=== PATIENT | female | born 1975 | race Caucasian/White ===

== ENCOUNTER 2018-07-13 08:53 | Day surgery (SDC) | payer OTHER ==
[2018-07-13] MEDS: LACTATED RINGER'S 1,000 ML IV* (09:45)
[2018-07-13 11:04] LABS: ADD MAN DIFF? NO
[2018-07-13 11:10] LABS: BASOPHILS % 0.4 % (0.0-2.0); EOSINOPHILS # 0.2 10^3/ul (0.0-0.5); EOSINOPHILS % 2.2 % (0.0-7.0); HEMATOCRIT 33.1 % (37.0-47.0); HEMOGLOBIN 10.2 g/dl (12.0-16.0); LYMPHOCYTES # 1.7 10^3/ul (0.8-2.9); LYMPHOCYTES % 25.1 % (15.0-51.0); MEAN CORPUSCULAR HEMOGLOBIN 28.3 pg (29.0-33.0); MEAN CORPUSCULAR HGB CONC 30.8 g/dl (32.0-37.0); MEAN CORPUSCULAR VOLUME 91.9 fl (82.0-101.0); MEAN PLATELET VOLUME 9.7 fl (7.4-10.4); MONOCYTE # 0.6 10^3/ul (0.3-0.9); MONOCYTES % 9.3 % (0.0-11.0); NEUTROPHIL # 4.2 10^3/ul (1.6-7.5); NEUTROPHILS % 62.7 % (39.0-77.0); PLATELET COUNT 318 10^3/UL (140-415); RED CELL DISTRIBUTION WIDTH 13.5 % (11.5-14.5)
[2018-07-13 11:10] LABS: WHITE BLOOD COUNT 6.7 10^3/ul (4.8-10.8)
[2018-07-13 11:27] LABS: ALANINE AMINOTRANSFERASE 18 IU/L (13-69); ALBUMIN 3.9 g/dl (3.3-4.9); ALBUMIN/GLOBULIN RATIO 1.34; ALKALINE PHOSPHATASE 30 IU/L (42-121); ANION GAP 8 (5-13); ASPARTATE AMINO TRANSFERASE 13 IU/L (15-46); BILIRUBIN,INDIRECT 0.2 mg/dl (0-1.1); BILIRUBIN,TOTAL 0.2 mg/dl (0.2-1.3); BLOOD UREA NITROGEN 15 mg/dl (7-20); CALCIUM 8.9 mg/dl (8.4-10.2); CARBON DIOXIDE 24 mmol/L (21-31); CHLORIDE 109 mmol/L (97-110); CREATININE 0.75 mg/dl (0.44-1.00); Estimated GFR > 60 mL/min (>60); GLUCOSE 81 mg/dl (70-220); POTASSIUM 4.1 mmol/L (3.5-5.1); SODIUM 141 mmol/L (135-144); TOTAL PROTEIN 6.8 g/dl (6.1-8.1)
[2018-07-13] MEDS ORDERED: OXYCODONE/ACETAMINOPHEN (5/325) TAB PO ×2 (12:00)
[2018-07-13] MEDS ORDERED: FENTAnyl 50 MCG/ML VIAL IV ×2 (12:00)
[2018-07-13] MEDS ORDERED: DIPHENHYDRAMINE 50 MG INJ IV (12:00)
[2018-07-13] MEDS ORDERED: MEPERIDINE 25 MG INJ IV (12:00)
[2018-07-13] MEDS ORDERED: HYDROmorphONE 1 MG/5 ML IV SYRINGE IV ×2 (12:00)
[2018-07-13] MEDS ORDERED: FERRIC SUBSULFATE 8 GM VIAL TOP (12:00)
[2018-07-13] MEDS ORDERED: ONDANSETRON 4 MG INJ IV (12:00)
[2018-07-13] MEDS ORDERED: ALBUTEROL 0.083% (NEB) 2.5 MG/3 ML AMP HHN (12:00)
[2018-07-13] MEDS ORDERED: LABETALOL HCL 20MG INJ IV (12:00)
[2018-07-13] MEDS ORDERED: morphine (1 MG/ML) 10ML SYRINGE IV ×2 (12:00)
[2018-07-13] MEDS ORDERED: LIDOCAINE 2% (SDV) 5 ML INJ (12:10)
[2018-07-13] MEDS ORDERED: MIDAZOLAM 1 MG/ML 2 ML INJ (12:10)
[2018-07-13] MEDS ORDERED: CEFAZOLIN 1 GM INJ (12:10)
[2018-07-13] MEDS ORDERED: ONDANSETRON 4 MG INJ (12:10)
[2018-07-13] MEDS ORDERED: PROPOFOL 40 ML (12:10)
[2018-07-13] MEDS ORDERED: DEXAMETHASONE 4 MG/ML 1 ML INJ (12:10)
[2018-07-13] MEDS ORDERED: FENTAnyl 50 MCG/ML VIAL (12:10)
[2018-07-13] MEDS ORDERED: FAMOTIDINE 20 MG INJ (12:10)
[2018-07-13] MEDS ORDERED: KETOROLAC 30 MG INJ (12:11)
[2018-07-13] MEDS: LIDOCAINE 1%/EPI 30 ML INJ (13:09)
[2018-07-13] MEDS: FERRIC SUBSULFATE 8 GM VIAL TOP (13:09)
[2018-07-13] MEDS ORDERED: EPHEDrine SULFATE 50 MG/5 ML SYG (13:20)
== END 2018-07-13 15:11 | disposition home or self-care (01) ==
LOC: SDS 08:53
DX: N87.1 Moderate cervical dysplasia (principal); N72 Inflammatory disease of cervix uteri; N88.8 Other specified noninflammatory disorders of cervix uteri; I10 Essential (primary) hypertension
CPT/HCPCS: 57522; 80053; 85025; 86850; 86900; 86901; 88305; 93005